=== PATIENT | female | born 1970 | race Caucasian/White ===

== ENCOUNTER 2019-10-26 14:23 | Emergency (ER) | payer OTHER ==
--- NOTE | 2019-10-26 14:25 | ED Physician Documentation ---
PD HPI UPPER EXT INJURY - Stated complaint Stated Complaint: RT HAND INJURY - History obtained from History obtained from: Patient - History of Present Illness Location: Right, Hand Type of injury: Crush (helping her lift equipment into pickup and it placed/slipped onto the dorsum of her hand that was flat on surface. Equipment was very heavy. Bruising/abrasion and pain dorsum of hand. Denies other injuries .) Review of Systems Skin: reports: Abrasion (s). denies: Laceration (s) Neurologic: denies: Focal weakness, Numbness, Near syncope PD PAST MEDICAL HISTORY - Past Medical History Past Medical History: No - Allergies Allergies/Adverse Reactions: Allergies Allergy/AdvReac Type Severity Reaction Status Date / Time No Known Drug Allergies Allergy Verified 10/26/19 14:27 PD ED PE NORMAL - Vitals Vital signs reviewed: Yes - General General: Alert and oriented X 3, Well developed/nourished, Other (appears uncomfortable with any hand movement. Declines opiate pain meds. ) - Derm Derm: Normal color, Warm and dry - Extremities Extremities: Other (right hand with band of contusion/bruising across dorsum. Superficial abrasions in couple areas. No lacs. Normal color and cap refill in fingers. Forearm not tender. ) - Neuro Neuro: No motor deficit, No sensory deficit Results - Vitals Vitals: Vital Signs - 24 hr 10/26/19 10/26/19 14:27 15:44 Temperature 36.5 C Heart Rate 65 55 L Respiratory 14 16 Rate Blood Pressure 145/84 H 127/79 O2 Saturation 100 96 Oxygen O2 Source Room air - Rads (name of study) right hand Radiology: Prelim report reviewed (no fractures), See rad report PD MEDICAL DECISION MAKING - ED course Complexity details: reviewed results (no fractures on xray), considered differential, d/w patient Departure - Departure Disposition: 01 Home, Self Care Clinical Impression: Hand contusion Qualifiers: Encounter type: initial encounter Laterality: right Qualified Code(s): S60.221A - Contusion of right hand, initial encounter Condition: Stable Record reviewed to determine appropriate education?: Yes Instructions: ED Contusion Hand Comments: Ibuprofen or naproxen 2-3 times a day. To that add Tylenol if needed for pain. No fracture seen on your x-ray. Your hand will still likely hurt for several days even up to a week or so. Use the splint as needed for less motion and comfort. Clean the abrasions once or twice daily with soap and water and apply some ointment. Recheck if signs of infection. Recheck if not improved over the next several days to week. Discharge Date/Time: 10/26/19 16:13
[2019-10-26] MEDS ORDERED: ACETAMINOPHEN 325 MG TABLET PO STA (14:45)
--- NOTE | 2019-10-26 15:05 | XRAY Report ---
PROCEDURE: Hand 3 View RT INDICATIONS: crush injury with equipment TECHNIQUE: 3 views of the hand(s) acquired. COMPARISON: None FINDINGS: Bones: No fractures or dislocations. No suspicious bony lesions. Soft tissues: No suspicious soft tissue calcifications. IMPRESSION: No evidence acute bony abnormality of the right hand. Reviewed by: Can Lemus MD on 10/26/2019 2:04 PM [facility] Approved by: Can Lemus MD on 10/26/2019 2:04 PM [facility] Station ID: [id number]
[2019-10-26 15:44] VITALS: BP 127/79
== END 2019-10-26 16:13 | disposition home or self-care (01) ==
LOC: ED 14:23
DX: S60.221A Contusion of right hand, initial encounter (principal); S60.511A Abrasion of right hand, initial encounter; W23.0XXA Caught, crushed, jammed, or pinched between moving objects, initial encounter; Y93.89 Activity, other specified
CPT/HCPCS: 99283

== ENCOUNTER 2020-08-20 08:43 | Outpatient (CLI) | payer OTHER ==
[2020-08-20 09:25] VITALS: BP 142/88
--- NOTE | 2020-08-20 09:25 | SLEEP CARE CONSULTATION ---
Information from patient questionnaire entered by Gloria Fischer. I have reviewed and concur with the information entered by Gloria Fischer. This document represents the service I personally performed and the decisions made by me, Sarika Hanks ARNP. History of Present Illness Service Date and Time: 08/20/2020 0843 Reason for Visit: New patient Chief Complaint: reports: Unrefreshed sleep, Snoring, Fatigue Date of Onset: 10 years Usual bedtime: 10 pm Time it takes to fall asleep: 10 minutes Snores at night: Yes Observed to quit breathing while asleep: No Sleeps alone due to snoring: No Number of times waking at night: 2-3 Reasons for waking at night: reports: Snoring, Gasping for air (suffocating feeling and have to take a deep breath in last 2 years; heart is pounding usually), Bathroom Toss, Turn, or Twitch while sleeping: Yes Recalls having dreams: Yes Usually gets out of bed at: 7-8 am Feels refreshed in the morning: No Morning headache: No Sleepy or fatigued during the day: Yes Ever fallen asleep while driving: No Takes day naps: Yes (almost every day for about 1 hour) Dreams during day naps: No Prior sleep studies: Yes Year and Where: 2017 - [facility] Additional HPI information: I had the pleasure of seeing KAISER LARA today regarding the possibility of her having a sleep disorder. Her current complaints are fatigue, snoring, and unrefreshed sleep. She states her has sleep apnea and has been encouraging her to get tested. She states she is just always tired normally. Her has told her she snores but has not noted pauses in breathing. He can sleep in same room. She was previously evaluated with an HST but when they attempted to do the HST in 2017 they did not get a good study at that time. She just adopted a baby and was unable to sleep the required time consecutively to get a good reading. She gave up at that time. She states her snoring is becoming worse and in the last 2 years she is having times when she wakes up feeling like she has not been breathing and gasps for air. She states her heart is pounding at that time. She has elevated blood pressures that start high in the morning and reduce over the day. She has had two incidences with her heart with elevated enzymes and heart arrhythmias but cardiology never could come up with a definitive answer for these occurring. She comes back today to try and repeat the study for evaluation of her symptoms. She states her father snores loudly but has never been tested for apnea. 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 Patient is and lives in [place]. Have you smoked in the past 12 months: No Alcohol use: No Caffeine use: No Family History Family history of sleep disordered breathing: No Family Hx Sleep Apnea: Father: Snoring Allergies and Home Medications Drug allergies reviewed: Yes (NKDA) Home medication list reviewed: Yes (Women's vitamin B supplement) Review of Systems Weight gain over past 5 years: 30 Cardiovascular: reports: high blood pressure, palpitations, irregular heart rate or pulse Gastrointestinal: denies: heartburn Neurological: denies: headaches Psychiatric: reports: claustrophobia. denies: anxiety, depression, mood disorder Ear/Nose/Throat: reports: nasal congestion, tonsillectomy, wisdom teeth removed Endocrine: reports: sluggishness Musculoskeletal: reports: joint pain, back pain, joint swelling, muscle pain or cramping Immunologic: reports: allergies to food or environment Physical Exam Blood Pressure: 142/88 Cuff size: long Heart Rate: 65 O2 Saturation: 98 Height: 5 ft 5 in Weight: 161 lb Body Mass Index: 26.8 BMI Classification: Overweight Neck circumference: 13.75 (inches) Nostrils: patent to airflow Mouth and throat: narrow oropharynx Soft palate: long Hard palate: normal Uvula: normal Uvula visualization: 50% Mallampati Class II Tongue: enlarged in size with teeth stephenson on lateral edges Tonsils: absent bilaterally Chin and jaw: normal size and position Neck: normal w/o lymphadenopathy or thyromegaly Heart: regular rate and rhythm Lungs: clear bilaterally Impression and Plan 1. Suspected Obstructive Sleep Apnea-Hypopnea Syndrome, as suggested by a history of loud and irregular snoring, gasping or choking in sleep, unrefreshed sleep, and cognitive impairment. Narrow oropharynx and obesity are common predisposing factors for obstructive sleep apnea-hypopnea syndrome. I recommend proceeding to polysomnography to confirm the diagnosis and to assess severity. If the patient has significant sleep disordered breathing, a manual CPAP titration study will also be performed to find the optimal treatment pressure. I informed the patient of what the sleep studies involve and after some discussion, obtained agreement to proceed. The pathophysiology of obstructive sleep apnea-hypopnea syndrome was discussed with the patient and health risks of cardiovascular and cerebrovascular disease if not treated. Risks of drowsy driving discussed in detail and patient advised to avoid long distance driving and to tub puller at the first sign of drowsiness. Patient agreed to plan. * Schedule polysomnography +- manual CPAP titration study and return in 1-2 weeks after the study to discuss result and initiate therapy. * Avoid long distance driving or driving when feeling sleepy. * Avoid sedative and muscle relaxant around bedtime. * Attempt to lose weight. * Review instructions provided by trained office staff on how to prepare for the sleep study. * Return for follow-up after sleep study completed. Counseling Topics: Weight loss health impact Visit Type: In Office Time Spent with Patient (minutes): 32 Provider Statement: I spent 100% of the Face to Face Visit with the patient with greater than 50% spent counseling the patient and coordination of care.
== END 2020-08-20 08:44 | disposition home or self-care (01) ==
LOC: SC 08:43
PROVIDERS: ATTEND Nurse Practitioner Family
DX: G47.8 Other sleep disorders (principal); R41.89 Other symptoms and signs involving cognitive functions and awareness; R06.83 Snoring; E66.3 Overweight; Z68.26 Body mass index [BMI] 26.0-26.9, adult
CPT/HCPCS: 99203; 99212

== ENCOUNTER 2020-09-24 09:56 | Outpatient (CLI) | payer OTHER | END 2020-09-24 09:57 | disposition home or self-care (01) | LOC: SC 09:56 | PROVIDERS: ATTEND Nurse Practitioner Family | DX: G47.33 Obstructive sleep apnea (adult) (pediatric) (principal); E66.3 Overweight; Z68.26 Body mass index [BMI] 26.0-26.9, adult | CPT/HCPCS: 95806 ==

== ENCOUNTER 2020-10-05 14:14 | Outpatient (CLI) | payer OTHER ==
--- NOTE | 2020-10-05 14:48 | SLEEP CARE CONSULTATION ---
Information from patient questionnaire entered by Gloria Fischer. I have reviewed and concur with the information entered by Gloria Fischer. This document represents the service I personally performed and the decisions made by , Sarika Hanks ARNP. History of Present Illness Service Date and Time: 10/05/2020 141 Initial [place] Sleepiness Scale score: 3 (in 2020) Current [place] Sleepiness Scale score: 5 Additional HPI information: KAISER LARA returns for follow up and results of the recently performed home sleep study. I explained the pathophysiology behind obstructive sleep apnea. We then spent quite a bit of time discussing different treatment options. For mild obstructive sleep apnea, surgery and oral appliance are alternatives to nasal CPAP therapy but in moderate or severe cases, nasal CPAP is the most effective and reliable treatment. Because apnea is primarily in supine position, then positional management therapy could be effective. Methods discussed such as positioning with pillows, using a T-shirt with tennis balls in the back, and shown commercial products that have a pillow format on back to prevent supine sleep. I reviewed the impact of weight changes on sleep apnea and strongly recommended losing weight. After some discussion, the patient opted to go with the nasal CPAP therapy. Nasal autoCPAP set at 4-15 cmH20 will be ordered with rationale explained. A manual titration study will be ordered if unable to find optimal pressure with office adjustments. I explained how CPAP machine works with sample devices [employer] Dreamstation and [employer] [id number] and what to expect when using the machine. Using CPAP every night in order to get used to it was emphasized. Patient was cautioned about risks of drowsy driving until sleepiness symptoms resolve. Sleep Study - Results Type of Sleep Study: Home sleep study Prior sleep studies: Yes Year and Where: 2017 - [place], [place] Polysomnography/Home Sleep Study results: Physician Impression: The quality of the study is good. The length of the study is adequate (> 240 minutes). Please also see the tabulated and graphic data. 1. Obstructive Sleep Apnea-Hypopnea (ICD-10 G47.33), mild, with an AHI of 6.5/hr and deidre SaO2 of 92%. During the study, the patient had 36 apneas (35 obstructive, 0 central, 1 mixed) and 4 hypopneas. The longest episode lasted 44.0 seconds. The respiratory events occurred almost exclusively during supine sleep (supine AHI was 31.1 and non-supine, 4.44). Allergies and Home Medications Home medication list reviewed: Yes (no changes) Review of Systems Review of systems same as previous: Yes (no changes) Physical Exam Heart Rate: 72 O2 Saturation: 98 Height: 5 ft 5 in Weight: 164 lb Body Mass Index: 27.3 BMI Classification: Overweight Impression and Plan 1. Obstructive Sleep Apnea-Hypopnea Syndrome, mild, with lowest oxygen saturation of 92%. Obviously this is the cause of the patients symptoms of unrefreshed sleep, and excessive daytime sleepiness. Positive pressure therapy could benefit hypertension and arrhythmias. As mentioned above, the patient will be started on nasal autoCPAP therapy with pressure set at 4-15 cmH2O. A manual titration study will be completed if unable to find optimal treatment pressure with office adjustments. Compliance guidelines also reviewed. A copy of compliance guidelines will be given for reference at check out. Because the apnea is more severe supine, I instructed to avoid sleeping supine using pillow positioning until able to start CPAP use. * Nasal auto CPAP therapy, pressure at 4-15 cm H2O. * Attempt to lose weight. * Avoid alcohol consumption near bedtime. * Avoid supine sleep until using CPAP. * The patient is again cautioned about driving until sleepiness completely resolves. * Return one month after CPAP obtained. I will assess response to therapy and compliance at that time. Counseling Topics: Weight loss health impact Visit Type: In Office Time Spent with Patient (minutes): 20 Provider Statement: I spent 100% of the Face to Face Visit with the patient with greater than 50% spent counseling the patient and coordination of care.
== END 2020-10-05 14:15 | disposition home or self-care (01) ==
LOC: SC 14:14
PROVIDERS: ATTEND Nurse Practitioner Family
DX: G47.33 Obstructive sleep apnea (adult) (pediatric) (principal); E66.9 Obesity, unspecified; Z68.27 Body mass index [BMI] 27.0-27.9, adult
CPT/HCPCS: 99212; 99213

== ENCOUNTER 2020-12-10 07:48 | Outpatient (CLI) | payer OTHER ==
--- NOTE | 2020-12-10 08:20 | SLEEP CARE CONSULTATION ---
Information from patient questionnaire entered by Gloria Fischer. I have reviewed and concur with the information entered by Gloria Fischer. This document represents the service I personally performed and the decisions made by , Sarika Hanks ARNP. History of Present Illness Service Date and Time: 12/10/2020 0748 Previous diagnosis: Mild, Obstructive Sleep Apnea-Hypopnea Syndrome AHI: 6.5 (in 2020) Reason for follow up: first compliance Equipment type: CPAP Equipment obtained from: [employer] (got initial supplies) Mask style: Nasal Backup mask available: No (will keep old mask when replaced) Last cushion change: 2 weeks Prior sleep studies: Yes Year and Where: 2020 - [facility]; 2016 - [place], [place] Type of Sleep Study: Home sleep study HPI additional information: KAISER LARA was diagnosed to have mild, AHI mild, obstructive sleep apnea- hypopnea syndrome and returned today for CPAP therapy first compliance follow- up. CPAP Compliance Data - Data Reviewed with Patient Average duration of nightly device use: 1 hr 12 min Compliance rate %: 0 Current pressure setting (cmH2O): 4-15 (median 5.3, avg 6.4, max 6.7) Humidity settin Average residual AHI: 1.5 Central apnea: 1.1 Obstructive apnea: 0.2 Subjective Missed days of use due to: reports: mask issues, illness Patient concerns: reports: mask discomfort, other (can't push a full breath out). denies: aerophagia, air blowing in eyes, mask leak noise, condensation in mask/hose, nasal congestion, dry mouth, nose, throat, epistaxis Observed to snore while using device: No Current pressure setting perceived as: comfortable On therapy, patient: reports: sleeping better (even with minimal use), more rested overall Initial [place] Sleepiness Scale score: 3 (in 2020) Current [place] Sleepiness Scale score: 5 Allergies and Home Medications Home medication list reviewed: Yes (no changes) Review of Systems Review of systems same as previous: Yes (no changes) Physical Exam Heart Rate: 67 O2 Saturation: 98 Height: 5 ft 5 in Weight: 156 lb Body Mass Index: 25.9 BMI Classification: Overweight Impression and Plan 1. Obstructive Sleep Apnea-Hypopnea Syndrome, mild, with poor treatment compliance and good apnea control. On CPAP therapy, the patient has better sleep quality and is more rested overall. Patient has had difficulty feeling like she can breathe out when wearing the mask due to the pressure, but she has only averaged wearing mask for up to 1 hour or so sporadically over the last month due to illness of herself and her child. I will adjust her pressure and follow up again to see how she is doing. She likes the nasal cushion mask she is using but will try the larger size to see if the fit is better. The patients pressure will be changed to autoCPAP 4-5 cmH20. Patient advised to contact me if pressure change is uncomfortable so that it can be adjusted. Goals for apnea control discussed. Patient was encouraged to try to lose weight. Patient's apnea severity and rationale for treatment to reduce apnea, improve sleep quality and reduce cardiovascular and cerebrovascular events was reviewed. I also reviewed the benefit of consistent device use of CPAP for hypertension and arrhythmia. * Change auto CPAP pressure to 4-5 cmH2O * Notify me if snoring with mask or feeling that the pressure is too much or too little * Attempt to lose weight * Call this office if any problems using CPAP * Return for follow up in 1-2 months, or sooner if concerns arise Counseling Topics: Spare mask, Weight loss health impact Visit Type: In Office Time Spent with Patient (minutes): 18 Provider Statement: I spent 100% of the Face to Face Visit with the patient with greater than 50% spent counseling the patient and coordination of care.
== END 2020-12-10 07:49 | disposition home or self-care (01) ==
LOC: SC 07:48
PROVIDERS: ATTEND Nurse Practitioner Family
DX: G47.33 Obstructive sleep apnea (adult) (pediatric) (principal); E66.3 Overweight; Z68.25 Body mass index [BMI] 25.0-25.9, adult
CPT/HCPCS: 99212

== ENCOUNTER 2021-04-04 08:45 | Outpatient (CLI) | payer OTHER | END 2021-04-04 23:59 | disposition home or self-care (01) | LOC: LAB.N 08:45 | PROVIDERS: ATTEND Physician Assistant Medical | DX: R07.0 Pain in throat (principal); Z20.822 Contact with and (suspected) exposure to COVID-19 ==

== ENCOUNTER 2022-05-24 04:29 | Emergency (ER) | payer OTHER ==
--- NOTE | 2022-05-24 05:55 | ED Physician Documentation ---
History of Present Illness - Stated complaint Stated Complaint: HIGH BP - Chief complaint Chief Complaint: General - History obtained from History obtained from: Patient - History of Present Illness Timing: How many weeks ago (1) Pain level max: 0 Pain level now: 0 - Additonal information Additional information: HPI from patient. Patient c/o elevated blood pressures measured at home over past week, readings have been consistently 170s-190s range for SBP and mostly 90s DBP. She is asymptomatic. She had been on losartan for approximately 6 months, discontinued approximately 4 months ago; she was given dietary advice by PMD when started on the losartan, and PMD advised her that she could stop the losartan 4 months ago due to consistently controlled blood pressures on the medication as well as when trialed off of it. She says she was on a very low dose when she was prescribed the losartan. Review of Systems Cardiac: denies: Chest pain / pressure Respiratory: denies: Dyspnea Neurologic: denies: Headache PD PAST MEDICAL HISTORY - Past Medical History Past Medical History: Yes Cardiovascular: None Respiratory: None Neuro: None Endocrine/Autoimmune: None GI: None DEMOLITION SPECIALIST: Other : None HEENT: Chronic vision loss Psych: None Musculoskeletal: None Derm: None - Past Surgical History Past Surgical History: Yes HEENT: Tonsil/Adenoidectomy - Present Medications Home Medications: Ambulatory Orders Medication Instructions Recorded Confirmed Losartan [Cozaar] 50 mg PO DAILY #30 tablet 05/24/22 - Allergies Allergies/Adverse Reactions: Allergies Allergy/AdvReac Type Severity Reaction Status Date / Time No Known Drug Allergies Allergy Verified 05/24/22 04:48 - Social History Does the pt smoke?: No Smoking Status: Never smoker Does the pt drink ETOH?: No Does the pt have substance abuse?: No - Immunizations Immunizations are current?: Yes - POLST Patient has POLST: No PD ED PE NORMAL - Vitals Vital signs reviewed: Yes - General General: Alert and oriented X 3, No acute distress, Well developed/nourished - Cardiac Cardiac: RRR, No murmur - Neuro Neuro: Alert and oriented X 3 Results - Vitals Vitals: Oxygen O2 Source Room air PD Medical Decision Making - ED course Complexity details: considered differential, d/w patient ED course: blood pressures in ED are 180s-200s, DBP 90s. She has had one week of measurements at home that are similarly elevated. Asymptomatic; no emergent testing indicated at this time. Will rx losartan 50mg PO QD, advised to follow up with PMD for reevaluation Departure - Departure Disposition: 01 Home, Self Care Clinical Impression: Hypertension Qualifiers: Hypertension type: unspecified Qualified Code(s): I10 - Essential (primary) hypertension Condition: Good Instructions: ED Hypertension New Begin Tx Prescriptions: Losartan [Cozaar] 50 mg PO DAILY #30 tablet Comments: You have had high blood pressures measured at home for 1 week, and the blood pressures that you had been having with your blood pressure cuff at home are quite high. Since you are not having any significant symptoms with this, no tests were performed in the emergency department tonight. I am starting you on losartan. You are given a dose in the emergency department and a prescription for 1 months supply has been electronically submitted to the [facility] pharmacy in [place]. Contact your primary care provider this morning when their office opens to arrange for next available appointment. Discharge Date/Time: 05/24/22 06:39
[2022-05-24 06:17] VITALS: BP 184/90
[2022-05-24] MEDS ORDERED: LOSARTAN 50 MG TABLET PO STA (06:24)
== END 2022-05-24 06:39 | disposition home or self-care (01) ==
LOC: ED 04:29
DX: I10 Essential (primary) hypertension (principal)
CPT/HCPCS: 99282; 99284; A9270

== ENCOUNTER 2023-05-05 00:13 | Emergency (ER) | payer OTHER ==
--- NOTE | 2023-05-05 01:19 | ED Physician Documentation ---
History of Present Illness - Stated complaint Stated Complaint: HIGH BP - Chief complaint Chief Complaint: General - History obtained from History obtained from: Patient - Additonal information Additional information: HPI from patient. Patient c/o high blood pressure readings on her BP cuff at home over the past week. She measures her BP regularly but more frequently when she feels her blood pressure is high; she cannot elaborate on what symptoms are indicators to her of high blood pressure. She denies CP, dyspnea, JULIAN, visual changes, numbness/weakness. BP readings over the past several days have been consistently in 190s/110s ranges. She was seen in this ED one year ago (by me) for similar c/o and I prescribed 50mg QD losartan (which she had been on for years but stopped, per her PCP's instruction, 4 months before the ED visit).She has since been increased to losartan 100mg QD and was having good BP control until this past week. Review of Systems Eyes: denies: Loss of vision, Decreased vision Cardiac: reports: Reviewed and negative Respiratory: reports: Reviewed and negative Neurologic: denies: Generalized weakness, Focal weakness, Numbness, Headache PD PAST MEDICAL HISTORY - Past Medical History Past Medical History: Yes Cardiovascular: Hypertension Respiratory: None Neuro: None Endocrine/Autoimmune: None GI: None CERTIFIED ALCOHOL COUNSELOR: Other : None HEENT: Chronic vision loss Psych: None Musculoskeletal: None Derm: None - Past Surgical History Past Surgical History: Yes HEENT: Tonsil/Adenoidectomy - Present Medications Home Medications: Ambulatory Orders Medication Instructions Recorded Confirmed Losartan [Cozaar] 100 mg PO DAILY 05/05/23 Losartan/Hydrochlorothiazide 1 each PO DAILY #30 tablet 05/05/23 [Losartan-Hctz 100-12.5 mg Tab] - Allergies Allergies/Adverse Reactions: Allergies Allergy/AdvReac Type Severity Reaction Status Date / Time No Known Drug Allergies Allergy Verified 05/05/23 00:26 - Social History Does the pt smoke?: No Smoking Status: Never smoker Does the pt drink ETOH?: No Does the pt have substance abuse?: No - Immunizations Immunizations are current?: Yes - POLST Patient has POLST: No PD ED PE NORMAL - Vitals Vital signs reviewed: Yes - General General: Alert and oriented X 3, No acute distress, Well developed/nourished - Cardiac Cardiac: RRR - Respiratory Respiratory: No respiratory distress, Clear bilaterally - Extremities Extremities: No edema - Neuro Neuro: Alert and oriented X 3, cost and risk analysis manager 2-12 intact, No motor deficit, No sensory deficit, Normal speech Eye Opening: Spontaneous Motor: Obeys Commands Verbal: Oriented GCS Score: 15 PD ED PE EXPANDED - Cardiac Cardiac: Murmur Present (1/6 LANA at cardiac base/right 2nd ICS) Results - Vitals Vitals: Oxygen O2 Source Room air PD Medical Decision Making - ED course Complexity details: considered differential, d/w patient ED course: Presents with essentially asymptomatic hypertension (cannot elaborate on what cue(s) she has when she feels her BP is high, but denies concerning symptoms such as CP, dyspnea, JULIAN). Her BP readings are high in ED, initially 229/128, but steadily improving on subsequent readings to 178/86 (without intervention). Given her consistent high readings at home, I am prescribing losartan/HCTZ. She had already taken her losartan this evening, and is thus only given HCTZ in ED prior to d/c. Return precautions reviewed. She understands that she needs to pursue follow up with PCP even if BP improves, as I am only providing a one- month rx. Departure - Departure Disposition: Home, Self Care Clinical Impression: Hypertension Qualifiers: Hypertension type: primary hypertension Qualified Code(s): I10 - Essential (primary) hypertension Condition: Good Instructions: ED Hypertension Conf Out Of Control Prescriptions: Losartan/Hydrochlorothiazide [Losartan-Hctz 100-12.5 mg Tab] 1 each PO DAILY #30 tablet Comments: I have electronically submitted a prescription for a blood pressure medication to the [facility] in [place]. This medication is a combination of the losartan at the same dose that you are currently taking (100 mg daily) along with 12.5 milligrams of HCTZ. Take the new combination medication INSTEAD of the current losartan (in other words, do not take your current losartan along with the new combination anti-hypertensive). Follow-up with your primary care provider, next available appointment, for reevaluation. I have provided a 1-month supply of this medication, but it is likely you will need longer-term medication at the discretion of your primary care provider. Additionally, as we discussed, you have a faint heart murmur on exam; this might need further tests such as an ultrasound of your heart (echocardiogram), again at the discretion of your primary care provider. Forms: PCP List Discharge Date/Time: 05/05/23 02:15
[2023-05-05] MEDS ORDERED: hydroCHLOROthiazide 25 MG TABLET PO STA (01:57)
[2023-05-05 02:17] VITALS: BP 178/86; O2SAT 98
== END 2023-05-05 02:15 | disposition home or self-care (01) ==
LOC: ED 00:13
DX: I10 Essential (primary) hypertension (principal)
CPT/HCPCS: 99284; A9270